=== PATIENT | female | born 1940 | race Caucasian/White ===

== ENCOUNTER → 2020-09-06 10:06 | Outpatient (CLI) | payer MEDICARE, SELFPAY ==
--- NOTE | 2020-09-06 10:07 | DI.CT.S_ITS ---
PROCEDURE: CT ABDOMEN PELVIS W CON INDICATIONS: Iron deficiency anemia, high CEA, suspicious colon cance TECHNIQUE: After the administration of oral and intravenous contrast, axial sections were acquired from the lung bases to the pubic symphysis. Coronal and sagittal reformats were performed. For radiation dose reduction, the following was used: automated exposure control, adjustment of mA and/or kV according to patient size. COMPARISON:None. FINDINGS: Image quality: Excellent. Lung bases: Unremarkable. There is concentric thickening and focal narrowing of the distal esophagus and GE junction. Heart: No significant findings. ABDOMEN: Liver: Normal in size. There is hepatic steatosis. Gallbladder: Gallbladder contains multiple gallstones. No gallbladder wall thickening or pericholecystic fluid. Biliary ducts: Unremarkable. Pancreas: Unremarkable. Spleen: Unremarkable. Adrenal Glands: Unremarkable. Kidneys and Ureters: Kidneys are normal in size and symmetric in enhancement. Left extrarenal pelvis. Stomach and Bowel: There is a mass in cecum highly suspicious for colon cancer. Moderate amount of stool in colon. No findings to suggest colonic obstruction or small bowel obstruction Peritoneum: No abnormal intraperitoneal fluid. No free air. Ventral Wall: No hernia. Abdominal Nodes: No retroperitoneal or mesenteric adenopathy by size criteria. Slightly prominent pericecal lymph nodes are noted measuring up to 0.9 cm. Vessels: Aorta and inferior vena cava are normal in size. PELVIS: Pelvic Organs: Unremarkable. Bladder: Unremarkable. Pelvic Nodes: No enlarged lymph nodes. Miscellaneous: No inguinal hernias are seen. Bones: Unremarkable. 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 IMPRESSION: 1. There is an irregular mass in cecum highly suspicious for cecal cancer. Recommend lower endoscopy and diagnosis. 2. Slightly prominent pericecal lymph nodes are seen measuring up to 0.9 cm. Cannot rule out early adrianna metastasis. 3. Mild concentric thickening and focal narrowing of the distal esophagus and GE junction. This finding could be secondary to chronic gastroesophageal reflux. Recommend clinical correlation. A double-contrast esophagram or EGD is suggested for follow-up evaluation. 4. Cholelithiasis. 5. Hepatic steatosis. Dictated by: Marti Duong M.D. on 09/06/2020 at 14:34 Approved by: Marti Duong M.D. on 09/06/2020 at 18:25
== END ==
PROVIDERS: PCP Physician Assistant Medical; Referring Provider Internal Medicine Hematology & Oncology; Visit Provider Internal Medicine Hematology & Oncology
DX: C18.9 Malignant neoplasm of colon, unspecified (principal); D50.9 Iron deficiency anemia, unspecified; R97.0 Elevated carcinoembryonic antigen [CEA]; K80.20 Calculus of gallbladder without cholecystitis without obstruction; K76.0 Fatty (change of) liver, not elsewhere classified
CPT/HCPCS: 74177; Q9967

== ENCOUNTER 2020-09-21 11:11 | Day surgery (SDC) | payer MEDICARE, SELFPAY ==
[2020-09-21] VITALS (8 sets, daily range): BP systolic 99–136; BP diastolic 45–60; PULSE 61–75; RESP 14–20; TEMP 36.1–36.8; O2SAT 93–100; BMI 30.1
--- NOTE | 2020-09-21 | DI.RAD.S_ITS ---
PROCEDURE: XR CHEST 1V INDICATIONS: staging colon cancer TECHNIQUE: One view of the chest was acquired. COMPARISON: None. FINDINGS: Surgical changes and devices: None. Lungs and pleura: Lungs are clear. No pleural effusions or pneumothorax. Mediastinum: Mediastinal contours appear normal. Heart size is normal. Bones and chest wall: No suspicious bony lesions. Overlying soft tissues appear unremarkable. IMPRESSION: No lung mass demonstrated radiographically. Dictated by: Talat Naidu M.D. on 09/21/2020 at 11:56 Approved by: Talat Naidu M.D. on 09/21/2020 at 11:56
[2020-09-21 12:39] LABS: COVID19 -Nasal RAPID Negative (Negative)
[2020-09-21] MEDS: LACTATED RINGERS 1,000 ML 200 ML IV (13:50)
--- NOTE | 2020-09-21 15:22 | PM.PREOP ---
Pre-operative Note Interval Note History & Physical reviewed/Exam performed by Physician: Yes Changes to H&P: No
[2020-09-21] MEDS: fentaNYL 250 MCG/5 ML INJ IV (15:38)
[2020-09-21] MEDS: MIDAZOLAM 5 MG/5 ML VIAL IV (15:38)
--- NOTE | 2020-09-21 16:10 | PM.OP.ENDO ---
Operative Date/Time/Diagnoses Date of procedure: 09/21/20 Time of procedure: 16:11 Pre-op diagnosis: Colon mass Post-op diagnosis: same Procedure & Clinicians Study performed: Colonoscopy Same procedure as scheduled: Yes Indications: 79-year-old woman with anemia found have a right-sided colon mass here for colonoscopy Surgeon: Brayden Langford Procedure Notes Procedure in detail: The history and physical was performed/updated and the patient is ASA class is 2. The procedure was discussed in detail with the patient. Potential risks complications including infection, bleeding, missed diagnosis, perforation, need for surgery, and were explained. Their questions were answered and informed consent was obtained. Patient was brought to the procedure room and placed standard monitoring equipment. The patient's vital signs were monitored continuously throughout the entire procedure. Prior to starting time-out was performed. The patient was placed in the left lateral recumbent position. Procedural sedation was administered. Examination began with a thorough inspection of the perianal area there was no evidence of fissures, fistulae, external hemorrhoids or cutaneous malignancy. The colonoscopy scope was then placed into the anal canal and was advanced to the cecum, which was identified by the ileocecal valve, the appendiceal orifice and the confluence of the taenia. The scope was then slowly withdrawn examining colon thoroughly in all directions, irrigating it of any residual stool. FINDINGS 1. Large several cm friable mass in the SC consistent with adenocarcinoma-3 mL of tattoo or injected across 3 quadrants 2. No synchronous lesions The patient tolerated the procedure well. They will be discharged once criteria are met. The prep was of good/excellent quality. The withdrawl time was 7minutes. The sedation time was 35 minutes. Specimen(s): none sent Complications: none Impression: Colonic mass Post-procedure Disposition: same day surgery
--- NOTE | 2020-09-21 16:45 | SUR.PHASEII ---
Patient is to return tomorrow for procedure. Dr. Langford states that patient may discharge today with IV in place. IV wrapped loosely to prevent dislodging and patient educated on IV
--- NOTE | 2020-09-21 17:03 | SUR.PHASEII ---
Patient awaiting transportation to arrive from [facility]. Denies having any questions or concerns. OR charge nurse attempting to coordinate with acute care to admit patient to the floor tomorrow for blood transfusion prior to surgery.
--- NOTE | 2020-09-21 17:30 | SUR.PHASEII ---
Continues to wait for ride, dozing intermittently, arouses easily to voice. Hand off report to Cheli Can RN at 2526
== END 2020-09-21 18:34 | disposition home or self-care (01) ==
PROVIDERS: PCP Family Medicine; Referring Provider Surgery; Visit Provider Surgery
PROC: 0DJD8ZZ Inspection of Lower Intestinal Tract, Via Natural or Artificial Opening Endoscopic (ICD-10-PCS; CPT 45378; principal; 2020-09-21 14:45)
CPT/HCPCS: 36415; 71045; 86850; 86900; 86901; 87635; J2250; J3010

== ENCOUNTER 2020-09-22 12:31 | Inpatient (IN) | payer MEDICARE, SELFPAY ==
[2020-09-20 11:52] VITALS: BMI 30.6
[2020-09-22] VITALS (22 sets, daily range): BP systolic 92–132; BP diastolic 37–91; PULSE 61–75; RESP 13–20; TEMP 35.8–36.7; O2SAT 90–100
--- NOTE | 2020-09-22 | PATH_ITS ---
[facility] Accession Number: [id number] . 01 Material submitted: . colon - RIGHT COLON AND APPENDIX . 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 Please see CAP Summary Data below. . CAP SUMMARY DATA Procedure: Right hemicolectomy. Tumor site: Cecum. Histologic type: Adenocarcinoma with mucinous and signet ring cell features. Histologic grade: G3, poorly differentiated. Tumor size: Greatest dimension 7.0 cm. Tumor extent: Invades visceral peritoneum. Macroscopic tumor perforation: Not identified. Lymphovascular invasion: Present, confirmed by immunohistochemistry. Perineural invasion: Not identified. Treatment effect: No known presurgical therapy. . Margins: All margins negative for invasive carcinoma. Closest margin: Mesenteric, greater than 2 cm. Regional lymph nodes: All regional lymph nodes negative for tumor. Number of lymph nodes examined: 11. Tumor deposits: Not identified. . Pathologic stage classification (AJCC 8th Edition): pT category: pT4a. pN category: pN0. pM category: Not applicable. . Additional findings: Tubular adenomas and sessile serrated adenomas. Appendix with no diagnostic abnormality. . Special studies: Loss of nuclear expression of MLH1 and PMS2 by immunohistochemistry. Please see comment. [facility] 09/27/2020 1616 Local . 02 Comment: There is loss of nuclear expression of MLH1 and PMS2. Testing for methylation of MLH1 promotor and/or mutation of BRAF is indicated. These tests will be performed and the results reported as an addendum. . . As part of routine supplier quality specialist, Dr. Toro reviewed selected slides and agrees with diagnosis of adenocarcinoma. . 02 Electronically signed: . Nyla Cruz MD, Pathologist NPI- [id number] . 01 Gross description: . The specimen is received in formalin, labeled right colon and appendix and consists of a 4.0 cm in length by 2.0 cm in diameter portion of terminal ileum with attached cecum and ascending colon measuring 23 cm in length by 2.8 cm in diameter. The proximal and distal margins are stapled. The serosa is hall-pink and smooth with focal fibrinous adhesions. The attached appendix measures 3.2 cm in length by 0.6 cm in diameter and displays a hall-pink smooth serosa. The specimen is opened to reveal a 7.0 x 5.2 x 1.5 cm, fungating, hall-pink, focally hemorrhagic and focally necrotic mass within the cecum and ascending colon, coming to within 4.8 cm from the proximal margin and greater than 10 cm from the distal margin. Sectioning reveals extension through the muscularis to the serosa with a maximal thickness of 2.8 cm and the extension measuring 0.5 cm. The mass is greater than 2 cm from the mesenteric margin. The remaining mucosa is hall-pink with normal mucosal folds and three hall-pink sessile polyps distal to the mass (2.2 cm), ranging from 0.2-0.4 cm with no submucosal involvement. There is a 4.5 x 3.0 cm black area of submucosal tattooing located 5.5 cm from the distal margin. The wall thickness ranges from 0.1-0.3 cm and the internal luminal circumference ranging from 2.0-7.0 cm. Sectioning through the attached adipose tissue reveals multiple hall-pink lymph nodes ranging from 0.2-1.3 cm. Also received within the specimen container is a 3.0 cm in length by 1.6 cm in diameter additional portion of small intestine with three stapled margins. Coffee Farmer sections are submitted. . A1: Proximal margin, education courses sales representative perpendicular sections (blue). A2: Distal margin, education courses sales representative perpendicular sections (black). A3-A7: Coffee Farmer mass. A8: Closest mesenteric margin, education courses sales representative perpendicular section (blue). A9: Three sessile polyps. A10: Coffee Farmer submucosal tattooing. A11: Coffee Farmer appendix. A12: Coffee Farmer additional portion of small intestinal, to include stapled margins (blue and black). A13-A14: Intact candidate lymph nodes. A15: One trisected lymph node. A16: One bisected lymph node. (EA:[id number]) /MRV 09/23/2020 1156 Local . 02 Microscopic: . Immunohistochemical stains were performed to characterize cells of interest. All control stains showed appropriate reactivity. . RESULTS: Block A5: CK7: Negative. CK20: Variably positive. SATB2: Positive. PAX8: Negative. D2-40: Highlights lymphatics containing malignant cells. MLH1: Loss of nuclear expression. MSH2: Intact nuclear expression. MSH6: Intact nuclear expression. PMS2: Loss of nuclear expression. Background nonneoplastic tissue/internal control with intact nuclear expression. . INTERPRETATION: The immunophenotype is compatible with a primary colonic adenocarcinoma. D2-40 stain confirms the presence of lymphovascular invasion. There is loss of nuclear expression of MLH1 and PMS2. . . Cytokeratin KRISTINA stains were performed on blocks containing lymph nodes (A13-A16) to evaluate for metastasis and are all negative. . . . * This test was developed and its performance characteristics determined by [employer]. It has not been cleared or approved by the U.S. Food and Drug Administration. The FDA has determined that such clearance or approval is not necessary. This test is used for clinical purposes. It should not be regarded as investigational or for research. . 02 Pathologist provided ICD-10: C18.9 . 02 CPT . 912556, E27416, C95553 Performed at: 01 [facility] Cytology [address] [id number] MD Juan Antonio Rader MD Phone: [phone] Performed at: 02 [facility] [id number] [place] [id number] MD Nyla Cruz MD Phone: [phone]
--- NOTE | 2020-09-22 13:05 | SUR.OPER ---
Supine on padded OR bed, head on pillow, arms secured on padded arm boards at <90 degrees abduction, legs uncrossed, safety belt at thigh, tape over blanket over lower legs.
--- NOTE | 2020-09-22 13:45 | PM.PREOP ---
Pre-operative Note Interval Note History & Physical reviewed/Exam performed by Physician: Yes Changes to H&P: No H&P completed within 30 days and has changed as indicated here:: colonoscopy demonstrates large friable mass consistent with adenocarcinoma of the cecum no additional lesions. Staging imaging CT A/P and CXR negative for metastatic disease. Will proceed with laparoscopic assisted right hemicolectomy.
[2020-09-22] MEDS: LACTATED RINGERS 1,000 ML 100 ML IV (14:01)
--- NOTE | 2020-09-22 14:07 | SUR.PREOP ---
Patient PRBC started infusing into IV at 1348. Blood teaching done. Recheck at 1403. Pt asymptomatic. Pt being transferred to OR via stretcher at this time by Chuy YOUNG. IVF in 2nd IV to right arm. Report to Dr Hargrove and RN.
[2020-09-22] MEDS: PIPERACILLIN/TAZO 4.5 GM in SODIUM CHLORIDE 0.9% 100 ML 200 ML IV (14:25)
--- NOTE | 2020-09-22 14:52 | SUR.OPER ---
Lithotomy on padded OR bed. [place] Pad Positioner under torso. Head on pillow, arms padded and tucked at sides. Legs secured in padded yellow fins stirrups.
[2020-09-22] MEDS: BUPIVACAINE 0.25% (PF) VIAL 30 ML INJ (15:04)
--- NOTE | 2020-09-22 15:32 | SUR.OPER ---
1 ST UNIT BLOOD INFUSED [id number] 2ND UNIT UP [id number]
--- NOTE | 2020-09-22 16:07 | SUR.OPER ---
LEFT ARM EXTENDED ON ARMBOARD AND SECURED WHEN 2 ND BLOOD ADMINISTERED
--- NOTE | 2020-09-22 17:49 | SUR.OPER ---
First unit of PRBC, unit number [id number] completed infusing at 1545, corrected from 1721. The Second unit of PRBC was completed at 1721 as documented in TAR.
--- NOTE | 2020-09-22 18:23 | SUR.PHASEI ---
Dr. Guidry checked on patient, told him that she is beginning to arouse, BP increasing, sleeping comfortably.. Resp even and regular, skin warm and dry. 1833 UA collected, taken to the lab
--- NOTE | 2020-09-22 18:54 | SUR.PHASEI ---
Son present, patient awake, very drowsy, told her son that she loves him. Denies pain/nausea, will transfer on room air
[2020-09-22 19:09] LABS: Bacteria Urine None Seen
[2020-09-22 19:19] LABS: Appearance Urine UA CLEAR; Bilirubin Urine UA NEGATIVE (NEGATIVE); Color Urine UA YELLOW; Glucose Urine UA NEGATIVE (Negative); Ketones Urine UA TRACE (NEGATIVE); Leukocyte Esterase Urine UA NEGATIVE (NEGATIVE); Nitrite Urine UA NEGATIVE (Negative); Occult Blood Urine UA TRACE-LYSED (Negative); Protein Urine UA TRACE (Negative); Urobilinogen Urine UA 0.2 E.U./dL (0.2)
--- NOTE | 2020-09-22 19:20 | SUR.PHASEI ---
Addendum entered by Shital Carbajal R.N. 09/22/20 19:31: 1857 time we left PACU Original Note: 1900 second liter of LR hung in the OR, 1900 ml infused; Taken to room 225, bed down and locked, call light within reach. Waiting for float nurse to give on-site report. SCDs on, ice chips given, O2 at 2LNP. Clothing bag and colorful bag taken to the room (cell phone and tablet). Family to bedside talking with patient. Patient is very tired, talking with the family. Report was given at 1912 - patient stated that she was having some abdominal pain - nurse will treat. VSS; abdominal dressing remains CDI, minimal drainage in drain. No further questions from the patient, staff, or family.
[2020-09-22] MEDS: HYDROMORPHONE 0.5 MG INJ IV (19:28)
[2020-09-22 19:29] LABS: pH Urine UA 5.5 (4.5-8.0)
[2020-09-22 19:40] LABS: Culture Indicated Urine Cult Not Indicated; Hyaline Casts Urine 1-5/LPF; RBC Urine 0-1/HPF (0-5/HPF); Squamous Epithelial Cell Urine 0-1 /HPF (0-5/HPF); Uric Acid Crystals Urine Moderate; WBC Urine 0-1/HPF (0-5/HPF)
--- NOTE | 2020-09-22 20:32 | P.OP_ITS ---
Operative Date/Time/Diagnoses Date of procedure: 09/22/20 Time of procedure: 20:32 Pre-op diagnosis: Colon mass Post-op diagnosis: same Procedure & Clinicians Procedure: Laparoscopic converted to open right hemicolectomy Same procedure as scheduled: Yes Indications: 79-year-old woman seen with anemia underwent a CT which demonstrated a right colon mass. Colonoscopy yesterday demonstrates a large friable mass in the right colon no synchronous lesions. Staging workup no evidence of metastatic disease Surgeon: Brayden Langford Chip Unloader: Forrest Guidry Anesthesia Type: General Operative Notes Findings: Large near obstructing mass of the right colon. No evidence of metastatic disease. Specimen(s): other (Right colon) Estimated Blood Loss (mL): 150 Procedure in detail: Patient was brought to the operating room placed supine on the table. Bilateral lower extremity compression devices were applied. General anesthesia was induced she was intubated with an endotracheal tube. Jackson catheter was sterilely placed. She was then positioned into lithotomy and appropriately padded. Time-out was performed. She received Zosyn prior to skin incision. A intra umbilical incision was made the fascia was grasped elevated sharply incised the abdomen was entered atraumatically. 12 mm balloon trocar w as then placed into the abdomen. Inspection of the abdomen demonstrated extensive adhesions within the right side of the abdomen and the lower midline secondary to her previous hysterectomy. These adhesions were extremely dense and the procedure was converted to open. A lower midline incision was made subcutaneous tissue divided fascia grasped elevated sharply incised abdomen was entered atraumatically. A lysis of adhesions was performed using sharp dissection. There was no evidence of carcinomatosis the liver surface was clean. The lesion was large and firm located in the cecum and there was tattoo indicating the distal extent of the area of concern. Beginning with the transverse colon the gastrocolic ligament was divided the hepatic flexure was mobilized. The dissection was continued in a lateral to medial fashion progressing down the white line of T[place]t to the level of the cecum. At this point the transverse colon was divided just beyond the hepatic flexure a window within the mesentery was created the colon was divided with the stapler Endo-TASHA 75 mm blue load. The mesentery to the right colon was then divided using the LigaSure device. The duodenum was identified and swept posteriorly out of harm's way. The mesentery was oversewn in several places using silk ties. The ileocolic pedicle was doubly ligated on the stay side. The terminal ileum was divided using the stapler. There was bleeding from the mesenteric side of the cut small bowel which was suture ligated. Because of this I decided to resect an additional 2 cm of small bowel to get back to healthy well perfused bowel and this was done with another load of the stapler. A [id number] anastomosis was formed between the transverse colon and the distal ileum. A crotch stitch was of place with silk and then the colotomy and enterotomy were made the anti mesenteric of surface of the bowels were fashioned in a [id number]-[id number] anastomosis with a additional load of the stapler. The common channel was inspected it was hemostatic and widely patent. The common open was then closed in a running fashion using 3-0 PDS suture. The closure was then imbricated using interrupted silk suture in Lembert fashion. The anastamosis was widely patent, well perfused and without tension. We then tested the anastomosis by submerging it within saline and insufflation was instilled within the rectum there was no evidence of leak. The abdomen was then irrigated with several L of sterile saline change of glove and gown was performed. The abdomen was then closed the fascia closed in running fashion using 1. PDS suture. Given the thick abdominal wall I placed a 10 [place] MOY flat drain in the subcutaneous space above the level of the fascia the subcutaneous tissue was then reapproximated using Vicryl suture skin closed with adriana. Patient tolerated the procedure well she was transferred to the recovery room in stable condition. Complications: none Post-operative Condition: stable Disposition: Acute Care
[2020-09-22] MEDS: METOPROLOL IR 50 MG TABLET 100 MG PO (20:37)
[2020-09-22] MEDS: OXYCODONE IR 5 MG TABLET PO (20:41)
[2020-09-23] VITALS (11 sets, daily range): BP systolic 105–155; BP diastolic 52–75; PULSE 56–81; RESP 16–20; TEMP 35.8–37; O2SAT 95–100
[2020-09-23] MEDS: OXYCODONE IR 5 MG TABLET PO ×4 (01:19→12:49)
[2020-09-23 06:17] LABS: Add Manual Diff / Slide Review NO; Basophils Absolute Auto 100 /uL (0-100); Basophils Percent Auto 0.4 % (0-2); Eosinophils Absolute Auto 0 /uL (0-450); Hematocrit 31.3 % (36-46); Hemoglobin 9.9 g/dL (12.0-16.0); Lymphocytes Absolute Auto 900 /uL (1100-4500); Lymphocytes Percent Auto 6.5 % (25-40); Mean Corpuscular HGB Conc 31.6 % (30-36); Mean Corpuscular Hemoglobin 23.4 PG (26-34); Mean Corpuscular Volume 73.9 fL (80-100); Monocytes Absolute Auto 700 /uL (0-900); Monocytes Percent Auto 4.8 % (3-14); Neutrophils Absolute Auto 11900 /uL (1500-7000); Neutrophils Percent Auto 88.3 % (50-75); Platelet Count 487 X10^3/uL (150-400); Red Blood Cell Count 4.23 X10^6/uL (4.0-5.2); Red Cell Distribution Width 27.6 % (11.6-14.8); White Blood Cell Count 13.5 X10^3/uL (4.5-11.0)
[2020-09-23 06:23] LABS: BUN Creatinine Ratio 11.3 (6-22); Blood Urea Nitrogen 9 mg/dL (7-17); Calcium 8.4 mg/dL (8.4-10.2); Carbon Dioxide 24 mmol/L (22-32); Chloride 106 mmol/L (98-107); Estimated Glomerular Filt Rate > 60.0 mL/min (>60); Glucose 137 mg/dL (80-110); HEMOLYSIS < 15 (0-50); Potassium 4.4 mmol/L (3.4-5.1); Sodium 137 mmol/L (137-145)
[2020-09-23 06:46] LABS: Anisocytosis 2+
[2020-09-23] MEDS: LACTATED RINGERS 1,000 ML 100 ML IV (08:28)
[2020-09-23] MEDS: CITALOPRAM 10 MG TABLET 20 MG PO (08:29)
[2020-09-23] MEDS: ENOXAPARIN 40 MG/0.4 ML SYRINGE SUBCUT (08:29)
--- NOTE | 2020-09-23 09:03 | P.PN_ITS ---
Subjective Subjective Date Patient Seen: 09/23/20 Time Patient Seen: 09:03 Interval history: tolerating clears. No flatus or BM. Pain controlled. Exam Vital Signs (past 8 hours): - 09/23/20 04:12 09/23/20 05:00 09/23/20 07:45 Temperature 96.7 F L 97 F L Pulse Rate 57 L 56 L Respiratory Rate 16 18 Blood Pressure 130/57 L 111/52 L Pulse Oximetry 99 98 99 Oxygen Delivery Method Nasal Cannula Oxygen Flow Rate 2 Narrative Exam Narrative: gen-adult female alert and oriented no distress chest-non labored resp abdomen-appropriately tender to palpation. drain SS ext-WWP Objective Labs Result Diagrams: 09/23/20 05:33 09/23/20 05:33 Labs: Laboratory Results - last 24 hr 09/21/20 09/22/20 09/23/20 12:02 18:36 05:33 WBC 13.5 H RBC 4.23 Hgb 9.9 L Hct 31.3 L MCV 73.9 L MCH 23.4 L MCHC 31.6 RDW 27.6 H Plt Count 487 H Neut % (Auto) 88.3 H Lymph % (Auto) 6.5 L [place] % (Auto) 4.8 Eos % (Auto) 0.0 L Baso % (Auto) 0.4 Neut # (Auto) 66391 H Lymph # (Auto) 900 L [place] # (Auto) 700 Eos # (Auto) 0 Baso # (Auto) 100 RBC Morphology See below Anisocytosis 2+ H Sodium Potassium Chloride Carbon Dioxide BUN Creatinine Estimated GFR BUN/Creatinine Ratio Glucose Calcium Urine Color Yellow Urine Appearance Clear Urine pH 5.5 Ur Specific [place] 1.020 Urine Protein Trace H Urine Glucose (UA) Negative Urine Ketones Trace H Urine Occult Blood Trace-lysed Urine Nitrate Negative Urine Bilirubin Negative Urine Urobilinogen 0.2 Ur Leukocyte Esterase Negative Urine RBC 0-1/hpf Urine WBC 0-1/hpf Ur Squamous Epith Cells 0-1 /hpf Uric Acid Crystals Moderate H Urine Bacteria None seen Hyaline Casts 1-5/lpf Ur Culture Indicated? Cult not indicated Blood Type A Positive Antibody Screen Negative Crossmatch See Detail 09/23/20 05:33 WBC RBC Hgb Hct MCV MCH MCHC RDW Plt Count Neut % (Auto) Lymph % (Auto) [place] % (Auto) Eos % (Auto) Baso % (Auto) Neut # (Auto) Lymph # (Auto) [place] # (Auto) Eos # (Auto) Baso # (Auto) RBC Morphology Anisocytosis Sodium 137 Potassium 4.4 Chloride 106 Carbon Dioxide 24 BUN 9 Creatinine 0.80 Estimated GFR > 60.0 BUN/Creatinine Ratio 11.3 Glucose 137 H Calcium 8.4 Urine Color Urine Appearance Urine pH Ur Specific [place] Urine Protein Urine Glucose (UA) Urine Ketones Urine Occult Blood Urine Nitrate Urine Bilirubin Urine Urobilinogen Ur Leukocyte Esterase Urine RBC Urine WBC Ur Squamous Epith Cells Uric Acid Crystals Urine Bacteria Hyaline Casts Ur Culture Indicated? Blood Type Antibody Screen Crossmatch FOR[facility]LY [facility], 1928–1983 Medical History (Updated 09/20/20 @ 12:12 by Apple Lee, RN) Alcoholism Benign paroxysmal vertigo Easy bruisability Hyperlipidemia Hypertension Major depressive disorder in remission Meniere disease Surgical History (Updated 09/20/20 @ 12:09 by Apple Lee, HECTOR) History of ankle surgery History of hysterectomy Hx of bilateral cataract extraction Family History Father Heart attack Social History household members: none Smoking Status: Former smoker alcohol intake: former substance use type: does not use Assessment & Plan Post-op Postoperative Procedures: Procedures Operation Date: 09/22/20 13:15 Actual Procedure Side Surgeon p Colon Resection Low Anterior w/ Appendectomy Brayden Langford MD Postoperative status narrative: 79F POD 1 lap to open right hemicolectomy for pr esumed colon cancer Doing well routine postoperative course -Diet-Clears until return of bowel function -Remove lamb cath -DC IVF -Out of bed to chair ambulate, PT -SCDs and pLovenox
--- NOTE | 2020-09-23 12:05 | PC.NURSE ---
PT reports mod-severe pain with movement s/p 5 mg oxycodone; lamb removed at 1100 and pt voided to bathroom; BTs hypoactive; MOY drain with scant sero-sanguineous, Bulky drsg c/d/i; ls clear; SCDs active; patient in bed and tolerating clear liquids
--- NOTE | 2020-09-23 13:33 | CM.DANOTE ---
Discharge Planning/Care Management DCP: assessment: case received, EMR reviewed and met now with pt and her son Abdoul. Introduced self and role. Pt is a 79 year old female who admitted yesterday for a scheduled Lap to open R hemicolectomy under care of Dr. Langford. Payer: [facility] PCP: Francis Garnica Jackson catheter is now out. Pt has been up to the chair and is starting clears. Pt confirms that her plan is to d/c to home when stable for same. Abdoul and his also live on [facility] and 2 grandsons also reside there. All have been talking about how best to support pt and are taking turns with different parts of her anticipated care needs. P: at this time: home with family support when stable for same. Anticipate PT will be involved when pt ready for this. DCP team will be following. CM Discharge Assessment Start: 09/23/20 13:25 Freq: Status: Active Protocol: Document 09/23/20 13:26 ITV (Rec: 09/23/20 13:33 ITV [id number]) Discharge Planning Assessment Advance Directives? Yes Advance Directives on File No History Provided By Patient,Family Member Has Patient been admitted in last 30 No days? Prior Living Arrangements House Household Members none Independent with ADL's Yes Is patient alert and oriented? Yes Document 09/23/20 13:32 ITV (Rec: 09/23/20 13:33 ITV [id number]) Discharge Planning Assessment Advance Directives? Yes Advance Directives on File No History Provided By Patient Prior Living Arrangements House Household Members none Independent with ADL's Yes Is patient alert and oriented? Yes Discharge Plan Home Review Status In Process Pre-Anesthesia Assessment Start: 09/20/20 11:52 Freq: Status: Active Protocol: Document 09/20/20 11:52 CAB (Rec: 09/20/20 12:32 CAB [id number]) Pre-Anesthesia Assessment Preferred Name Pat Patient Information Reviewed Via Phone Assessment Assessment Completed With Patient Comment ABDELRAHMAN SIMON on admit Primary Care Provider Francis Garnica Seen Specialist in Last 12 Months Yes Specialist Seen General surgeon,Oncologist, Opthamologist/Planer Setter Primary Language Korean Administration Clerk Required No Height 160.02 cm Weight 78.471 kg Body Mass Index (BMI) 30.6 Hearing Ability Normal Visual Assist Magnifying Glass Dentition Type Full- Upper Barriers to Learning None Hx Anesthesia Reactions No Hx Family Anesthesia Reaction No Hx Malignant Hyperthermia No Hx Blood Transfusions Yes: Anemia 3-4 weeks ago Hx Blood Transfusion Reaction No Anesthesia Review Requested No alcohol intake former Alcohol Intake Frequency Other: Hx alcoholism, sober x 34 years Smoking Status Former smoker Tobacco type cigarettes Smoking packs per day 1 how long ago did patient quit smoking Quit age [age] Substance Use Type does not use Pain Present Pain Reported Musculoskeletal Symptoms Back Pain History of Falling (Recent or History of Yes ) Patient is completely paralyzed or No completely immobile Mental Status Oriented to own ability Is patient on oxygen? No Does patient have BARTON/SOB Yes: r/t Anemia Hx Sleep Apnea No Currently Taking a Beta Juwan Yes: Metoprolol Can You Climb a Flight of Stairs Without No SOB Hx Chest Pain No Hx SOB Yes: r/t Anemia Hx Syncope or Dizziness Yes: r/t vertigo Anti-Coagulant Therapy No Has a Security System Technician No Cardiac Testing No Hx Pacemaker/ICD No Pacemaker Rep Required? No Diet Type At Home Regular dysphagia No Genitourinary Symptoms Dribbling Urinary Catheter Present No Hx Urinary Self Catheterization No Diabetes No Patient No Lactating No Hx Drug Resistant Organism No Presence of External or Internal Medical Yes: Salvatore eye lens Devices Have you had any close contact with No someone diagnosed with COVID-19? Marital Status Single Lives With none Prior Living Arrangements House Number of Floors (Floors) Two Floors Support System Child/Children Does the Patient Have Assistance After Yes Surgery Patient Discharge Plan Description Return Home Comment Pt advised 2-3 day length of stay per surgeon Additional comment Lives on [facility] Feels Safe in Current Environment Yes Been Physically Hurt or Threatened By a No Person in Current Environment Do you have thoughts of harming yourself None or others? Are you currently considering suicide? No Do you have a plan to hurt yourself or No Plan others? Do You Have Any Spiritual Beliefs That No May Affect Your HC Choices? Do You Have Any Cultural Practices That No May Affect Your HC Choices? Comment Sikh Who Can We Speak to About Patient's Care Family, friends Identifying Code for Release of Patient Declines to issue Information Health Care Proxy/Next of Kin Abdoul (son) Health Care Proxy Emergency Contact Name Abdoul (son) Emergency Contact Advance Directives? No Power of Building Operator No PAC Instructions Durable medical equipment, Medications to take/avoid, Nasal antibiotic,No ETOH/ petroleum product on skin DOS, NPO,Post-op transportation, Sturdy shoes/comfortable clothes,Do not bring valuables and remove jewelry
--- NOTE | 2020-09-23 14:08 | PT.IIE ---
Current Diagnoses Other specified diseases of intestine (09/22/20) Surgery Performed Operation Date: 09/22/20 13:15 Actual Procedures p Colon Resection Low Anterior w/ Appendectomy - Brayden Langford MD Medical History (Last Updated 09/20/20 @ 12:12 by Apple Lee RN) Alcoholism Benign paroxysmal vertigo Easy bruisability Hyperlipidemia Hypertension Major depressive disorder in remission Meniere disease Physical Therapy Inpatient Evaluation/Re-Eval M1 PT/OT-IP Prior Functional Status Start: 09/23/20 18:08 Freq: NEEDED Status: Active Protocol: Document 09/23/20 14:08 AB (Rec: 09/23/20 18:20 AB [id number]) Medical Review Prior Functional Status Medical History Reviewed Yes Communication able to make needs known Mobility and Gait pt stated that she is modified independent with all mobiltiies and ambulation without AD indoors and most of the time outdoors as well but occasionally uses a SPC Social History Household Members none Living Arrangements House Number of Floors (Floors) Two Floors Number of Stairs To Enter/Railing? pt plans to go to her son's house upon d/c and stated that her son and daughter in law can assist her. home info is regarding son's house pt will stay on main level of the house 3 steps to enter with B rails Home Environment Standard Height Toilet,Walk in Shower,Built-In Shower Seat Home Equipment Front Wheel Walker,Straight Cane,Grab Bars In Shower M2 PT-IP Current Condition Start: 09/23/20 18:08 Freq: NEEDED Status: Active Protocol: Document 09/23/20 14:08 AB (Rec: 09/23/20 18:20 AB [id number]) Physical Therapy Current Condition Current Condition Evaluation Date 09/23/20 Treatment Diagnosis s/p R hemicolectomy; difficulty in walking Onset Date 09/22/20 Precautions Abdominal Surgery Precautions Log Roll,Lifting Restrictions, Gait Belt above Incisional Area M3 PT-IP Subjective Start: 09/23/20 18:08 Freq: NEEDED Status: Active Protocol: Document 09/23/20 14:08 AB (Rec: 09/23/20 18:20 AB [id number]) Subjective Physical Therapy Visit Type Type Initial Evaluation Visit Start Time 14:08 Visit Stop Time 14:38 Total Visit Minutes 30 Number of LARD RENDERER Visits 0 Physical Therapy Visit Comments Patient Comments agreed to do PT Therapy Pain Assessment Pain When Pain Assessed At Rest Pain Present Pain Present Pain Reported Location Abdomen Intensity 7 Scale Used Numeric (0 - 10) Pain Management Techniques Distraction,Modification of Treatment,Re-positioning, Timing of Activity with Medications M4 PT-IP Mobility and Gait Start: 09/23/20 18:08 Freq: NEEDED Status: Active Protocol: Document 09/23/20 14:08 AB (Rec: 09/23/20 18:20 AB [id number]) PT-Bed Mobility Assessment Rolling Type of Rolling Log Rolling Level of Assist Minimal Assistance Supine to Sit Supine to Sit Minimal Assistance Sit to Supine Sit to Supine Minimal Assistance PT-Transfer Assessment Sit to and From Stand Sit to and from Stand Contact Guard Assistance,1 Person Assistance,Use of Upper Extremities Equipment Transfer Assistive Device Gait Belt,Front Wheeled Walker Transfers Transfer Destination Bed,Chair Transfer Technique ambulated using FWW Transfer Ability Level of Assist Contact Guard Assistance,1 Person Assistance,Use of Upper Extremities Comments Mobility Comments pt sitting on chair and agreed to do PT. educated pt regarding abdominal precautions and log roll. completed sit to stand CGA and ambulated ~ 12 using FWW. completed log roll sit <> supine min A and max cues. completed sit to stand CGA and ambulated back to bed usign FWW CGA. pt refused further ambulation and c/o abdominal pain. positioned pt on chair. call light and table placed within reach. pt Gait Assessment Gait Gait Assistance Required: Contact Guard Assist Distance (Feet) 12 Able to Maintain Weight Bearing Status Yes During Gait Assistive Devices Assistive Device Gait Belt,Front Wheeled Walker Orthotic/Prosthetic Devices or Brace: No Gait Deviations General Gait Pattern Decreased Stride Length, Decreased Feet Clearance Factors Limiting Gait Function Factors Limiting Gait Function Decreased Activity Tolerance, Decreased Strength,Limited Range of Motion,Pain,Poor Balance PT-Balance Assessment Sitting Balance and Reactions Static Sitting Balance Ability Good Dynamic Sitting Balance Ability Good Standing Balance and Reactions Static Standing Balance Ability Fair Dynamic Standing Balance Ability Fair Device Used FWW M5 PT-IP Objective Assessments Start: 09/23/20 18:08 Freq: NEEDED Status: Active Protocol: Document 09/23/20 14:08 AB (Rec: 09/23/20 18:20 AB [id number]) Orientation Orientation/Cognition Level of Alertness Alert Orientation Name,Place,Situation Language Function Ability Hard of Hearing Safety Awareness Decreased Safety Awareness Memory Description No Deficits Noted Gross Range of Motion Lower Extremity ROM Assessment Within Functional Limits Strength Lower Extremity Strength Hip 4-/5 Knee 4-/5 Coordination Assessment Gross Coordination Gross Coordination WNL Sensation Assessment Sensation Gross Sensation WNL Muscle Tone Muscle Tone WNL Yes M6 PT-IP Treatment Start: 09/23/20 18:08 Freq: NEEDED Status: Active Protocol: Document 09/23/20 14:08 AB (Rec: 09/23/20 18:20 AB [id number]) Physical Therapy Treatment Education Education Provided Precautions,Safety M7 PT-IP Assessment and Plan Start: 09/23/20 18:08 Freq: NEEDED Status: Active Protocol: Document 09/23/20 14:08 AB (Rec: 09/23/20 18:20 AB [email or web address]) PT Summary Assessment and Plan Potential Rehabilitation Potential Good Status of Condition at Evaluation Evolving Summary Impairments Pain,ROM,Strength,Balance,Bed Mobility,Transfers,Gait, Activity Tolerance Assessment Summary pt requiring CGA with mobility using FWW but has decrease activity tolerance with c/o increase pain. pt plans to go home to her son's house. will conduct caregiver training when appropriate as well as stair climbing training. will continue to assess progress. Goals Bed Mobility Goal Independent Transfer Goal Independent,Front Wheeled Walker Gait Goal Independent,Front Wheel Walker Gait Distance 200 Other Goals improve ambulation withotu AD 150 ft SBA up/down 3 steps B rails SBA Days to Meet Goals 10 Frequency of Treatment Frequency Of Treatment Once a Day Treatment Plan Physical Therapy Treatment Plan Bed Mobility Training,Transfer Training,Gait Training, Therapeutic Exercise,Balance Retraining,Post Op Education, Discharge Planning,Hot or Cold Pack,Neuromuscular Re-ed, Coordination Retraining,Manual Therapy Precautions Abdominal Surgery Precautions Log Roll,Lifting Restrictions, Gait Belt above Incisional Area Recommendations To Nursing Amount of Assist Needed 1 Person Assist Discharge Recommendations PT Discharge Recommendations Home with Assistance Transportation Needs at Discharge Private Vehicle
[2020-09-23] MEDS: OXYCODONE IR 5 MG TABLET 10 MG PO ×2 (15:54→20:36)
--- NOTE | 2020-09-23 18:17 | PC.NURSE ---
Nurse note. assumed pt responsibility at 1630. pt AO and receptive to care. Midline incision covered with ABD pad, CDI with MOY drain compressed with mild serosang drainage. pt reporting 2/10 pain post oxycodone 10mg at 1554. Tolerating clear liquid diet. Up to BR SBA.
[2020-09-23] MEDS: METOPROLOL IR 50 MG TABLET 100 MG PO (20:36)
[2020-09-24] VITALS (14 sets, daily range): BP systolic 109–146; BP diastolic 52–65; PULSE 60–71; RESP 15–18; TEMP 35.7–36.6; O2SAT 92–97
[2020-09-24] MEDS: OXYCODONE IR 5 MG TABLET 10 MG PO ×3 (03:15→20:19)
[2020-09-24 05:43] LABS: Blood Urea Nitrogen 10 mg/dL (7-17); Calcium 8.9 mg/dL (8.4-10.2); Carbon Dioxide 30 mmol/L (22-32); Chloride 105 mmol/L (98-107); Estimated Glomerular Filt Rate 59.8 mL/min (>60); Glucose 103 mg/dL (80-110); HEMOLYSIS < 15 (0-50); Sodium 137 mmol/L (137-145)
[2020-09-24 05:48] LABS: Potassium 5.2 mmol/L (3.4-5.1)
[2020-09-24 05:50] LABS: Basophils Absolute Auto 100 /uL (0-100); Basophils Percent Auto 0.7 % (0-2); Eosinophils Absolute Auto 400 /uL (0-450); Eosinophils Percent Auto 2.8 % (2-4); Hematocrit 29.3 % (36-46); Hemoglobin 9.2 g/dL (12.0-16.0); Lymphocytes Absolute Auto 2000 /uL (1100-4500); Lymphocytes Percent Auto 15.6 % (25-40); Mean Corpuscular HGB Conc 31.2 % (30-36); Mean Corpuscular Hemoglobin 23.4 PG (26-34); Mean Corpuscular Volume 74.9 fL (80-100); Monocytes Absolute Auto 900 /uL (0-900); Neutrophils Absolute Auto 9600 /uL (1500-7000); Neutrophils Percent Auto 73.9 % (50-75); Platelet Count 472 X10^3/uL (150-400); Red Blood Cell Count 3.92 X10^6/uL (4.0-5.2); Red Cell Distribution Width 27.7 % (11.6-14.8)
[2020-09-24 05:51] LABS: Add Manual Diff / Slide Review SLIDE REVIEW
[2020-09-24 07:10] LABS: Anisocytosis 2+; Ovalocytes 1+; Poikilocytosis 1+
[2020-09-24] MEDS: CITALOPRAM 10 MG TABLET 20 MG PO (09:17)
[2020-09-24] MEDS: ENOXAPARIN 40 MG/0.4 ML SYRINGE SUBCUT (09:17)
[2020-09-24] MEDS: METOPROLOL IR 50 MG TABLET 100 MG PO ×2 (09:17→20:19)
--- NOTE | 2020-09-24 13:23 | PM.PNPO.1 ---
Subjective Subjective Date Patient Seen: 09/24/20 Time Patient Seen: 13:24 Exam Vital Signs (past 8 hours): - 09/24/20 07:46 09/24/20 11:45 Temperature 98 F 97.9 F Pulse Rate 65 60 Respiratory Rate 15 16 Blood Pressure 120/53 L 109/59 L Pulse Oximetry 94 93 Oxygen Delivery Method Room Air Oxygen Flow Rate 0 Narrative Exam Narrative: Looks great. Tolerating clear liquids. No stool or flatus Const General: cooperative and comfortable HENCT Head: normocephalic and atraumatic Resp Effort & Inspection: normal respiratory effort and able to speak in complete sentences Cardio Rate: regular rate Rhythm: regular rhythm GI Other: abdomen is soft, dressing dry and intact. Drain is serosang. Objective Labs Result Diagrams: 09/24/20 05:00 09/24/20 05:00 Labs: Laboratory Results - last 24 hr 09/24/20 09/24/20 05:00 05:00 WBC 13.0 H RBC 3.92 L Hgb 9.2 L Hct 29.3 L MCV 74.9 L MCH 23.4 L MCHC 31.2 RDW 27.7 H Plt Count 472 H Neut % (Auto) 73.9 Lymph % (Auto) 15.6 L [place] % (Auto) 7.0 Eos % (Auto) 2.8 Baso % (Auto) 0.7 Neut # (Auto) 9600 H Lymph # (Auto) 2000 [place] # (Auto) 900 Eos # (Auto) 400 Baso # (Auto) 100 RBC Morphology See below Poikilocytosis 1+ H Anisocytosis 2+ H Ovalocytes 1+ H Sodium 137 Potassium 5.2 H Chloride 105 Carbon Dioxide 30 BUN 10 Creatinine 0.91 Estimated GFR 59.8 L BUN/Creatinine Ratio 11.0 Glucose 103 Calcium 8.9 PFSH Medical History (Updated 09/20/20 @ 12:12 by Apple Lee RN) Alcoholism Benign paroxysmal vertigo Easy bruisability Hyperlipidemia Hypertension Major depressive disorder in remission Meniere disease Surgical History (Updated 09/20/20 @ 12:09 by Apple Lee RN) History of ankle surgery History of hysterectomy Hx of bilateral cataract extraction Family History Father Heart attack Social History household members: none Smoking Status: Former smoker alcohol intake: former substance use type: does not use Assessment & Plan Post-op Postoperative Procedures: Procedures Operation Date: 09/22/20 13:15 Actual Procedure Side Surgeon p Colon Resection Low Anterior w/ Appendectomy Brayden Langford MD Postoperative status: doing well Postoperative plan: routine post-op care Postoperative plan narrative: Wait for flatus to advance diet today. IF no nausea, will advance tomorrow. continue current care. Time Spent With Patient Time with patient: 15-24 minutes
--- NOTE | 2020-09-24 14:26 | PC.NURSE ---
Pt reports mild to moderate pain with 10 mg Oxycodone; BTs to all quadrants hypoactive; Abd bulky drsg c/d/i; LS clear; pt ambulates to bathroom with sba and fww; up to chair today and napping in bed
--- NOTE | 2020-09-24 14:46 | PT.IPTN ---
Current Diagnoses Other specified diseases of intestine (09/22/20) Surgery Performed Operation Date: 09/22/20 13:15 Actual Procedures p Colon Resection Low Anterior w/ Appendectomy - Brayden Langford MD Physical Therapy Treatment Note M2 PT-IP Current Condition Start: 09/23/20 18:08 Freq: NEEDED Status: Active Protocol: Document 09/23/20 14:08 AB (Rec: 09/23/20 18:20 AB [id number]) Physical Therapy Current Condition Current Condition Evaluation Date 09/23/20 Treatment Diagnosis s/p R hemicolectomy; difficulty in walking Onset Date 09/22/20 Precautions Abdominal Surgery Precautions Log Roll,Lifting Restrictions, Gait Belt above Incisional Area M3 PT-IP Subjective Start: 09/23/20 18:08 Freq: NEEDED Status: Active Protocol: Document 09/24/20 14:46 AB (Rec: 09/24/20 16:59 AB [id number]) Subjective Physical Therapy Visit Type Type Treatment Note Visit Start Time 14:46 Visit Stop Time 15:00 Total Visit Minutes 14 Number of LINE HELPER Visits 0 Physical Therapy Visit Comments Patient Comments pt is agreeable to do PT M4 PT-IP Mobility and Gait Start: 09/23/20 18:08 Freq: NEEDED Status: Active Protocol: Document 09/24/20 14:46 AB (Rec: 09/24/20 16:59 AB [id number]) PT-Bed Mobility Assessment Rolling Type of Rolling Log Rolling Level of Assist Standby Assistance Supine to Sit Supine to Sit Standby Assistance,Head of Bed Elevated,Bedrails Sit to Supine Sit to Supine Standby Assistance,Head of Bed Elevated,Bedrails PT-Transfer Assessment Sit to and From Stand Sit to and from Stand Standby Assistance,Use of Upper Extremities Equipment Transfer Assistive Device Gait Belt,Front Wheeled Walker Orthotic/Prosthetic Devices or Brace: No Comments Mobility Comments completed supine to sit log roll SBA with use of bed rail and HOB elevated ~ 20 deg. pt completed sit to stand SBA and ambulated in the hallway ~ 150 ft using FWW SBA. presents with slow terrell and decrease stride length. pt requested to go back to bed. completed sit to supine SBA using bed rail and HOB elevated. positioned pt in bed. call light and table placed within reach. Gait Assessment Gait Gait Assistance Required: Standby Assistance,1 Person Assist Distance (Feet) 150 Able to Maintain Weight Bearing Status Yes During Gait Assistive Devices Assistive Device Gait Belt,Front Wheeled Walker Orthotic/Prosthetic Devices or Brace: Yes Gait Deviations General Gait Pattern Decreased Stride Length, Decreased Feet Clearance,Step- to Gait M5 PT-IP Objective Assessments Start: 09/23/20 18:08 Freq: NEEDED Status: Active Protocol: Document 09/23/20 14:08 AB (Rec: 09/23/20 18:20 AB [id number]) Orientation Orientation/Cognition Level of Alertness Alert Orientation Name,Place,Situation Language Function Ability Hard of Hearing Safety Awareness Decreased Safety Awareness Memory Description No Deficits Noted Gross Range of Motion Lower Extremity ROM Assessment Within Functional Limits Strength Lower Extremity Strength Hip 4-/5 Knee 4-/5 Coordination Assessment Gross Coordination Gross Coordination WNL Sensation Assessment Sensation Gross Sensation WNL Muscle Tone Muscle Tone WNL Yes M6 PT-IP Treatment Start: 09/23/20 18:08 Freq: NEEDED Status: Active Protocol: Document 09/24/20 14:46 AB (Rec: 09/24/20 16:59 AB [id number]) Physical Therapy Treatment Education Education Provided Precautions,Safety M7 PT-IP Assessment and Plan Start: 09/23/20 18:08 Freq: NEEDED Status: Active Protocol: Document 09/24/20 14:46 AB (Rec: 09/24/20 16:59 AB [id number]) PT Summary Assessment and Plan Potential Rehabilitation Potential Good Summary Impairments Pain,ROM,Strength,Balance, Coordination,Sensation,Tone, Cognition,Bed Mobility, Transfers,Gait,Activity Tolerance Progress Towards Goals Slow Progress due to Medical Issues,Slow Progress due to Activity Tolerance Assessment Summary pt improving with mobility and able to ambulate more today using FWW SBA ~ 150 ft. pt plans to go to her son's house upon d/c and son will be able to assist pt. will complete stair climbing training prior to d/c. Goals Bed Mobility Goal Independent Transfer Goal Independent,Front Wheeled Walker Gait Goal Independent,Front Wheel Walker Gait Distance 200 Other Goals improve ambulation withotu AD 150 ft SBA up/down 3 steps B rails SBA Days to Meet Goals 10 Frequency of Treatment Frequency Of Treatment Once a Day Treatment Plan Physical Therapy Treatment Plan Bed Mobility Training,Transfer Training,Gait Training, Therapeutic Exercise,Balance Retraining,Post Op Education, Discharge Planning,Hot or Cold Pack,Neuromuscular Re-ed, Coordination Retraining,Manual Therapy Precautions Abdominal Surgery Precautions Log Roll,Lifting Restrictions, Gait Belt above Incisional Area Recommendations To Nursing Amount of Assist Needed 1 Person Assist Discharge Recommendations PT Discharge Recommendations Home with Assistance Transportation Needs at Discharge Private Vehicle
[2020-09-25 02:00] VITALS: O2SAT 95
[2020-09-25 04:00] VITALS: BP 141/62; PULSE 75; RESP 18; TEMP 36.2; O2SAT 95
[2020-09-25 05:42] LABS: Basophils Absolute Auto 100 /uL (0-100); Basophils Percent Auto 0.9 % (0-2); Eosinophils Absolute Auto 600 /uL (0-450); Eosinophils Percent Auto 5.8 % (2-4); Hematocrit 27.9 % (36-46); Hemoglobin 8.8 g/dL (12.0-16.0); Lymphocytes Absolute Auto 2200 /uL (1100-4500); Lymphocytes Percent Auto 21.4 % (25-40); Mean Corpuscular HGB Conc 31.6 % (30-36); Mean Corpuscular Hemoglobin 23.5 PG (26-34); Mean Corpuscular Volume 74.3 fL (80-100); Monocytes Absolute Auto 900 /uL (0-900); Monocytes Percent Auto 8.6 % (3-14); Neutrophils Absolute Auto 6500 /uL (1500-7000); Neutrophils Percent Auto 63.3 % (50-75); Platelet Count 436 X10^3/uL (150-400); Red Blood Cell Count 3.75 X10^6/uL (4.0-5.2); Red Cell Distribution Width 28.5 % (11.6-14.8); White Blood Cell Count 10.3 X10^3/uL (4.5-11.0)
[2020-09-25 05:44] LABS: Add Manual Diff / Slide Review SLIDE REVIEW
[2020-09-25 05:49] LABS: BUN Creatinine Ratio 10.2 (6-22); Blood Urea Nitrogen 9 mg/dL (7-17); Calcium 8.5 mg/dL (8.4-10.2); Carbon Dioxide 28 mmol/L (22-32); Chloride 105 mmol/L (98-107); Estimated Glomerular Filt Rate > 60.0 mL/min (>60); Glucose 84 mg/dL (80-110); HEMOLYSIS < 15 (0-50); Potassium 4.3 mmol/L (3.4-5.1); Sodium 137 mmol/L (137-145)
[2020-09-25 06:00] VITALS: O2SAT 97
[2020-09-25] MEDS: OXYCODONE IR 5 MG TABLET 10 MG PO ×2 (06:31→14:47)
[2020-09-25 07:00] VITALS: BP 105/57; PULSE 66; RESP 18; TEMP 36.6; O2SAT 93
[2020-09-25 07:11] LABS: Anisocytosis 2+; Dimorphic RBC 2; Hypochromasia 1+; Microcytosis 1+
[2020-09-25 07:35] VITALS: O2SAT 94
[2020-09-25] MEDS: METOPROLOL IR 50 MG TABLET 100 MG PO (08:58)
[2020-09-25] MEDS: CITALOPRAM 10 MG TABLET 20 MG PO (08:58)
[2020-09-25] MEDS: ENOXAPARIN 40 MG/0.4 ML SYRINGE SUBCUT (08:59)
--- NOTE | 2020-09-25 11:15 | PT.IPTN ---
Current Diagnoses Other specified diseases of intestine (09/22/20) Surgery Performed Operation Date: 09/22/20 13:15 Actual Procedures p Colon Resection Low Anterior w/ Appendectomy - Brayden Langford MD Physical Therapy Treatment Note M2 PT-IP Current Condition Start: 09/23/20 18:08 Freq: NEEDED Status: Active Protocol: Document 09/23/20 14:08 AB (Rec: 09/23/20 18:20 AB [id number]) Physical Therapy Current Condition Current Condition Evaluation Date 09/23/20 Treatment Diagnosis s/p R hemicolectomy; difficulty in walking Onset Date 09/22/20 Precautions Abdominal Surgery Precautions Log Roll,Lifting Restrictions, Gait Belt above Incisional Area M3 PT-IP Subjective Start: 09/23/20 18:08 Freq: NEEDED Status: Active Protocol: Document 09/25/20 11:01 DCW (Rec: 09/25/20 11:25 DCW [id number]) Subjective Physical Therapy Visit Type Type Treatment Note Visit Start Time 11:01 Visit Stop Time 11:15 Total Visit Minutes 14 Number of STONE CUTTER Visits 0 Physical Therapy Visit Comments Patient Comments I'm feeling pretty good! Therapy Pain Assessment Pain When Pain Assessed During Mobility Pain Present Pain Present Denied Pain M4 PT-IP Mobility and Gait Start: 09/23/20 18:08 Freq: NEEDED Status: Active Protocol: Document 09/25/20 11:01 DCW (Rec: 09/25/20 11:25 DCW [id number]) PT-Transfer Assessment Sit to and From Stand Sit to and from Stand Standby Assistance,Use of Upper Extremities Equipment Transfer Assistive Device Gait Belt,Front Wheeled Walker Orthotic/Prosthetic Devices or Brace: No Comments Mobility Comments Pt seated in recliner upon therapist entering room Gait Assessment Gait Gait Assistance Required: Standby Assistance Distance (Feet) 500 Able to Maintain Weight Bearing Status Yes During Gait Assistive Devices Assistive Device Gait Belt,Front Wheeled Walker Orthotic/Prosthetic Devices or Brace: No Gait Deviations General Gait Pattern Decreased Stride Length,Flexed Trunk Factors Limiting Gait Function Factors Limiting Gait Function Decreased Activity Tolerance Stair Climbing Assessment Evaluation Level of Assist On Stairs Standby Assistance Devices Stair Climbing Assistive Devices Left Railing Technique/Endurance Stair Climbing Direction Ascend and Descend Stair Climbing Technique Step Over Step,Step to Step Number of Steps Climbed 3 Stair Climbing Set # Repetitions (reps) 1 Comments Stair Climbing Comments Step over step ascending Step to step descending M5 PT-IP Objective Assessments Start: 09/23/20 18:08 Freq: NEEDED Status: Active Protocol: Document 09/23/20 14:08 AB (Rec: 09/23/20 18:20 AB [id number]) Orientation Orientation/Cognition Level of Alertness Alert Orientation Name,Place,Situation Language Function Ability Hard of Hearing Safety Awareness Decreased Safety Awareness Memory Description No Deficits Noted Gross Range of Motion Lower Extremity ROM Assessment Within Functional Limits Strength Lower Extremity Strength Hip 4-/5 Knee 4-/5 Coordination Assessment Gross Coordination Gross Coordination WNL Sensation Assessment Sensation Gross Sensation WNL Muscle Tone Muscle Tone WNL Yes M6 PT-IP Treatment Start: 09/23/20 18:08 Freq: NEEDED Status: Active Protocol: Document 09/25/20 11:01 DCW (Rec: 09/25/20 11:25 DCW [id number]) Physical Therapy Treatment Education Education Provided Precautions,Safety M7 PT-IP Assessment and Plan Start: 09/23/20 18:08 Freq: NEEDED Status: Active Protocol: Document 09/25/20 11:01 DCW (Rec: 09/25/20 11:25 DCW [id number]) PT Summary Assessment and Plan Summary Impairments Strength,Balance,Transfers, Gait,Activity Tolerance Assessment Summary Pt significantly more mobile today vs yesterday. Ambulated 500' in [place] SBA using FWW, no signs of fatigue. Pt has slightly forward flexed trunk and a decreased terrell, although both of these improved as pt walked more and loosened up. Pt did well with her stairs, no safety concerns. There is currently questions whether pt is leaving today or tomorrow based on how she responds to eating solid food at lunch. From a PT standpoint, pt would be safe to discharge home today. Goals Bed Mobility Goal Independent Transfer Goal Independent,Front Wheeled Walker Gait Goal Independent,Front Wheel Walker Gait Distance 200 Other Goals improve ambulation withotu AD 150 ft SBA up/down 3 steps B rails SBA Days to Meet Goals 10 Frequency of Treatment Frequency Of Treatment Once a Day Treatment Plan Physical Therapy Treatment Plan Bed Mobility Training,Transfer Training,Gait Training, Therapeutic Exercise,Balance Retraining,Post Op Education, Discharge Planning,Hot or Cold Pack,Neuromuscular Re-ed, Coordination Retraining,Manual Therapy Precautions Abdominal Surgery Precautions Log Roll,Lifting Restrictions, Gait Belt above Incisional Area Recommendations To Nursing Amount of Assist Needed Standby Assistance,1 Person Assist Discharge Recommendations PT Discharge Recommendations Home with Assistance Transportation Needs at Discharge Private Vehicle
--- NOTE | 2020-09-25 15:50 | PC.NURSE ---
Discharge: Pt readied for d/c home. Son is picking pt up at hospital. Priority load pass given. removed ian drain and gave pt d/c instructions. Seen by PT and given their final instructions. 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 Discharge packet reviewed and understood. Questions answered. Pt d/c home via auto w/son.
--- NOTE | 2020-09-25 16:02 | P.DS_ITS ---
History of Present Illness History of Present Illness Date Patient Seen: 09/25/20 Time Patient Seen: 16:02 Chief complaint: INPT Narrative: 79-year-old female admitted 09/22/2020 for elective right hemicolectomy for a colonic mass. Initially referred to General surgery for iron deficiency anemia and a CT that demonstrated a right colon mass suspicious for adenocarcinoma. Yesterday she had a colonoscopy that demonstrated a large friable mass in the right colon consistent with colon cancer. Staging workup demonstrates no evidence of metastatic disease. Discharge Providers Provider Date of admission: 09/22/20 12:31 Discharge Date: 09/25/20 Primary care physician: Francis Garnica MD Consults: 09/23/20 09:03 Consult to Discharge Planning Routine Comment: Consult to Physical Therapy Evaluate & Treat Comment: Physician Instructions: Evaluate and Treat Discharge provider: Brayden Langford MD Summary Hospital Course Discharge Diagnosis: Status post right hemicolectomy Colonic mass Asthma Hypertension Hospital Course: Underwent laparoscopic converted to open right hemicolectomy 09/22/2020. No evidence of metastatic disease intraoperatively large mass consistent with cancer in the right colon. Postoperative course was unremarkable. At discharge 09/25 tolerant of a regular diet has return of bowel function pain is controlled with oral medication ambulatory. A drain within the subcutaneous space of the abdominal wall has been removed. She will follow up with General surgery 1 week time. Pathology is pending at this time. Exam Vital Signs (past 8 hours): Oxygen Delivery Method Room Air Oxygen Flow Rate 0 Narrative Exam Narrative: General elderly woman alert oriented no acute distress Abdomen midline incision clean dry intact with adriana. Drain serosanguineous output removed. Extremities warm well perfused Objective Labs Result Diagrams: 09/25/20 05:15 09/25/20 05:15 Labs: Laboratory Results - last 24 hr 09/25/20 09/25/20 05:15 05:15 WBC 10.3 RBC 3.75 L Hgb 8.8 L Hct 27.9 L MCV 74.3 L MCH 23.5 L MCHC 31.6 RDW 28.5 H Plt Count 436 H Neut % (Auto) 63.3 Lymph % (Auto) 21.4 L [place] % (Auto) 8.6 Eos % (Auto) 5.8 H Baso % (Auto) 0.9 Neut # (Auto) 6500 Lymph # (Auto) 2200 [place] # (Auto) 900 Eos # (Auto) 600 H Baso # (Auto) 100 RBC Morphology See below Dimorphic RBCs 2 Hypochromasia 1+ H Anisocytosis 2+ H Microcytosis 1+ H Sodium 137 Potassium 4.3 Chloride 105 Carbon Dioxide 28 BUN 9 Creatinine 0.88 Estimated GFR > 60.0 BUN/Creatinine Ratio 10.2 Glucose 84 Calcium 8.5 PFSH Medical History (Updated 09/20/20 @ 12:12 by Apple Lee RN) Alcoholism Benign paroxysmal vertigo Easy bruisability Hyperlipidemia Hypertension Major depressive disorder in remission Meniere disease Surgical History (Updated 09/20/20 @ 12:09 by Apple Lee RN) History of ankle surgery History of hysterectomy Hx of bilateral cataract extraction Family History Father Heart attack Social History household members: none Smoking Status: Former smoker alcohol intake: former substance use type: does not use Discharge Plan Discharge Plan Patient Disposition: Home Provider Discharge Comment: -Okay to shower -Do not submerge wounds in water until seen in follow-up. -No lifting >20 lbs x 4 weeks. -Walking only for exercise for 4 weeks. -No driving while taking narcotics. -schedule follow-up appointment with General surgery office for week of October 04 Discharge orders & Medications Prescriptions: New docusate sodium [Colace] 100 mg capsule 100 mg PO BID Qty: 30 RF: 0 oxycodone 5 mg tablet See Rx Instructions .ROUTE .COMPLEX PRN (Reason: pain) Qty: 30 RF: 0 acetaminophen [Tylenol] 325 mg capsule 650 mg PO QID PRN (Reason: pain) Qty: 60 RF: 0 Continued metoprolol tartrate 100 mg Tablet 100 mg PO BID RF: 0 clobetasol 0.05 % Cream 1 applic TOPICAL BID PRN (Reason: Facial rash) RF: 0 citalopram 20 mg Tablet 20 mg PO DAILY RF: 0 aspirin 81 mg Tablet 81 mg PO DAILY RF: 0 cholecalciferol (vitamin D3) [Vitamin D3] 25 mcg (1,000 unit) Capsule 25 mcg PO DAILY RF: 0 albuterol sulfate 90 mcg/actuation Hfa Aerosol Inhaler 2 puff INHALATION Q4-6H PRN (Reason: Occasional shortness of breath) RF: 0 Follow up/Referrals: Francis Garnica MD [Primary Care Provider] - Brayden Langford MD [Physician] - Diet/Activity/Treatments Diet: Regular Skin/Wound/Dressing Care Report to your healthcare provider any signs of infection, such as:: chills, fever, increased pain, unusual drainage and unusual redness Visit Report/Discharge Packet Instructions: DI for Colectomy, DI for Constipation, How to Prevent Falls, DI for Prescription Opioid Use Discharge Data Primary Care Provider: Francis Garnica
== END 2020-09-25 15:35 | disposition home or self-care (01) | DRG 331 ==
PROVIDERS: Admitting Provider Surgery; PCP Family Medicine; Referring Provider Surgery; Visit Provider Surgery
PROC: 0DTF0ZZ Resection of Right Large Intestine, Open Approach (ICD-10-PCS; CPT 44140; principal; 2020-09-22 13:15)
DX: C18.0 Malignant neoplasm of cecum (principal); D50.9 Iron deficiency anemia, unspecified; I10 Essential (primary) hypertension; F32.9 Major depressive disorder, single episode, unspecified; Z87.891 Personal history of nicotine dependence; Z20.822 Contact with and (suspected) exposure to COVID-19; J45.909 Unspecified asthma, uncomplicated; J44.9 Chronic obstructive pulmonary disease, unspecified
CPT/HCPCS: 36415; 36430; 36592; 44160; 71045; 80048; 81001; 82962; 85025; 86850; 86900; 86901; 87635; 94760; 97116; 97162; P9016; J0360; J1100; J1170; J1650; J2250; J2405; J2543; J2704; J3010

== ENCOUNTER 2020-10-04 09:52 | Day surgery (SDC) | payer MEDICARE, SELFPAY ==
[2020-09-30 10:52] VITALS: BMI 30.6
[2020-10-04 10:24] LABS: COVID19 -Nasal RAPID Negative (Negative)
[2020-10-04 10:42] VITALS: BMI 30.6
[2020-10-04 11:14] VITALS: BP 168/72; PULSE 60; RESP 16; TEMP 36.6; O2SAT 100
[2020-10-04] MEDS: LACTATED RINGERS 1,000 ML 42 ML IV (11:17)
[2020-10-04 11:20] VITALS: BMI 30.6
--- NOTE | 2020-10-04 11:56 | P.HP_ITS ---
History of Present Illness History of Present Illness Date Patient Seen: 10/04/20 Time Patient Seen: 11:56 Chief complaint: SDC Narrative: 79-year-old female status post right hemicolectomy 2 weeks ago for a colon cancer here for an elective Port-A-Cath placement. Case was reviewed in tumor board recommendation was for chemotherapy it was also noted that there was some fullness in the gastric region on her staging CT with recommendation for EGD. Patient History Medical History Alcoholism Benign paroxysmal vertigo Easy bruisability Hyperlipidemia Hypertension Major depressive disorder in remission Meniere disease Surgical History History of ankle surgery History of hysterectomy Hx of bilateral cataract extraction Hx of right hemicolectomy (09/22/20) Family & Social History Family History Father Heart attack Social History: household members none Prior Living Arrangements House Tobacco & Substance use: Tobacco type cigarettes Smoking Status Former smoker alcohol intake former Substance Use Type does not use Meds Home Medications and Allergies Home Medications Medication Instructions Recorded Confirmed Type aspirin 81 mg tablet 81 mg PO DAILY 08/30/20 10/04/20 History cholecalciferol (vitamin D3) 25 25 mcg PO DAILY 08/30/20 09/30/20 History mcg (1,000 unit) capsule (Vitamin D3) citalopram 20 mg tablet 20 mg PO DAILY 08/30/20 10/04/20 History clobetasol 0.05 % topical cream 1 applic TOPICAL BID PRN 08/30/20 09/30/20 History metoprolol tartrate 100 mg tablet 100 mg PO BID 08/30/20 10/04/20 History albuterol sulfate 90 mcg/actuation 2 puff INHALATION Q4-6H PRN 09/20/20 09/30/20 History aerosol inhaler acetaminophen 325 mg capsule 650 mg PO QID PRN #60 cap 09/25/20 10/04/20 Rx (Tylenol) docusate sodium 100 mg capsule 100 mg PO BID #30 cap 09/25/20 09/30/20 Rx (Colace) oxycodone 5 mg tablet See Rx Instructions .ROUTE 09/25/20 10/04/20 Rx .COMPLEX PRN #30 tab Allergies Allergy/AdvReac Type Severity Reaction Status Date / Time iodine Allergy Intermediate Hand Verified 10/04/20 10:37 swelling shellfish derived Allergy Intermediate Hand Verified 10/04/20 10:37 swelling lisinopril AdvReac Unknown Pt does Verified 10/04/20 10:37 not recall sertraline [From Zoloft] AdvReac Unknown Pt does Verified 10/04/20 10:37 not recall Exam Vital Signs (past 8 hours): - 10/04/20 11:14 Temperature 97.8 F Pulse Rate 60 Respiratory Rate 16 Blood Pressure 168/72 H Pulse Oximetry 100 Oxygen Delivery Method Room Air Narrative Exam Narrative: Constitutional-She is oriented to person, place and time. No apparent distress Cardiovascular- regular rate, no peripheral edema Pulmonary-unlabored respiratory effort, no audible wheezing Abdominal-soft, non-tender, non-distended Musculoskeletal-no cyanosis or clubbing Neurological-nonfocal, normal strength throughout, normal gait. Skin-warm and dry Objective Labs Labs: Laboratory Results - last 24 hr 10/04/20 10:04 SARS-CoV-2 (PCR) Negative Assessment & Plan Assessment & Plan narrative: 79-year-old female with stage II colon cancer with high risk features here for a Port-A-Cath placement and diagnostic EGD. Techni raymond details of the procedure were discussed the patient. Risks including bleeding, infection, embolus, intestinal perforation, damage to surrounding structures were discussed. Questions have been answered and she is in agreement with this plan.
[2020-10-04] MEDS: CEFAZOLIN 1 GM VIAL 2 GM IV (12:12)
[2020-10-04] MEDS: BUPIVACAINE 0.25% (PF) VIAL 10 ML INJ (12:34)
[2020-10-04] MEDS: BUPIVACAINE 0.5% (PF) VIAL 30 ML INJ (12:35)
[2020-10-04] MEDS: HEPARIN 5,000 UNIT, SODIUM CHLORIDE 0.9% 50 ML IV (12:35)
[2020-10-04] MEDS: NEOMYCIN/POLYMYXIN/BACITRA UD OINT 1 EACH TOP (12:58)
--- NOTE | 2020-10-04 13:00 | DI.RAD.S_ITS ---
PROCEDURE: XR CHEST 1V INDICATIONS: RIGHT PORT A CATH POST OP TECHNIQUE: One view of the chest was acquired. COMPARISON: [facility], CR, XR CHEST 1V, 09/21/2020, 10:56. FINDINGS: Surgical changes and devices: Interval placement of a right chest Port-A-Cath with a somewhat high course within the neck and catheter tip projecting over the superior vena cava. Lungs and pleura: Lungs are clear. No pleural effusions or pneumothorax. Mediastinum: Mediastinal contours appear normal. Heart size is normal. Bones and chest wall: No suspicious bony lesions. Overlying soft tissues appear unremarkable. IMPRESSION: Interval placement of right chest Port-A-Cath with catheter tip projecting over the superior vena cava. Dictated by: Barrie Jay M.D. on 10/04/2020 at 13:53 Approved by: Barrie Jay M.D. on 10/04/2020 at 13:58
[2020-10-04 13:08] VITALS: BP 145/67; PULSE 57; RESP 12; TEMP 36.4; O2SAT 100
[2020-10-04 13:13] VITALS: BP 149/61; PULSE 56; RESP 16; O2SAT 100
[2020-10-04 13:17] VITALS: BP 164/73; PULSE 55; RESP 16; O2SAT 96
[2020-10-04 13:23] VITALS: BP 161/69; PULSE 54; RESP 16; TEMP 36.4; O2SAT 99
--- NOTE | 2020-10-04 13:35 | SUR.PHASEII ---
Assumed care from [facility]ette, brought pt to phase 2. Dr Langford called to read xray, stated xray ok, pt given something to drink.
[2020-10-04 14:12] VITALS: BP 175/65; PULSE 53; RESP 18; TEMP 36.6; O2SAT 99
--- NOTE | 2020-10-04 14:16 | SUR.PHASEII ---
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 Pt dressing site to l neck and l chest c/d/i. Awaiting call from [facility] in law.
--- NOTE | 2020-10-04 14:39 | SUR.PHASEII ---
Pt left when ready and left in stable condition. D/C instructions discussed with both pt and daughter when brought to car. Both voiced an understanding.
--- NOTE | 2020-10-04 17:25 | PM.OP.1 ---
Operative Date/Time/Diagnoses Date of procedure: 10/04/20 Time of procedure: 17:25 Pre-op diagnosis: Colon cancer Post-op diagnosis: same Procedure & Clinicians Procedure: Port-A-Cath placement, esophagoduodenoscopy Same procedure as scheduled: Yes Indications: Stage II colon cancer with high risk features requiring chemotherapy, evaluation of gastric fullness noted on staging CT abdomen pelvis Surgeon: Brayden Langford Click Yes if Unassisted: Yes Anesthesia Type: MAC +/- Operative Notes Findings: Tip of the catheter lies within the SVC. No significant gastric abnormality Specimen(s): none sent Estimated Blood Loss (mL): 20 Procedure in detail: Patient was brought to the operating room placed supine on table. Bilateral lower extremity compressive devices were applied. General anesthesia was induced and he was intubated with an LMA. She was then prepped and draped in usual sterile fashion. Time-out was performed ensure the correct patient procedure necessary equipment within the operating room. She received 2 g of Ancef prior to incision. Under ultrasound guidance the right internal jugular vein was accessed under direct visualization. The guidewire was then threaded through the needle. Its placement was then confirmed using fluoroscopy. The dilator was then placed over the guidewire. The catheter was then inserted through the sheath. Placement was again confirmed with fluoroscopy. A subcutaneous pocket was made in the right chest wall. The tunneler device was used to move the catheter from the neck to the chest pocket. The port was attached after it was primed with heparined saline. The port was tested to ensure that it flushed easily and had good blood return. The port was then secured to the underlying fascia using interupted 0 Prolene suture. Hemostasis was achieved. The wound was irrigated with sterile saline. The subcutaneous tissues were reapproximated with the 3 0 Vicryl and then skin closed with 4-0 Monocryl. The skin was sealed with Dermabond. Patient tolerated procedure well. The sponge and instrument count at the end operation was correct. A bite block was placed. the scope was inserted into the mouth and advanced through the esophagus and into the stomach. The pylorus was intubated and the duodenum was normal to the 2nd portion. The scope was retroflexed within the stomach and there was a small hiatal hernia. No ulcers, or gastritis. The scope was withdrawn into the esophagus the Z line was seen at 40 cm from the incisions. There was no Platt's esophagitis or masses or strictures. Stomach was desufflated and scope removed. Patient tolerated procedure well. Patient emerged from general anesthesia was extubated and taken to the postoperative care unit in stable condition Complications: none Post-operative Condition: stable Disposition: same day surgery
== END 2020-10-04 14:23 | disposition home or self-care (01) ==
PROVIDERS: PCP Family Medicine; Referring Provider Surgery; Visit Provider Surgery
PROC: (CPT 36561; principal; 2020-10-04 11:30)
PROC: 0DJ08ZZ Inspection of Upper Intestinal Tract, Via Natural or Artificial Opening Endoscopic (ICD-10-PCS; CPT 43235; 2020-10-04 11:30)
DX: C18.9 Malignant neoplasm of colon, unspecified (principal); R93.5 Abnormal findings on diagnostic imaging of other abdominal regions, including retroperitoneum; E78.5 Hyperlipidemia, unspecified; I10 Essential (primary) hypertension; Z20.822 Contact with and (suspected) exposure to COVID-19; J44.9 Chronic obstructive pulmonary disease, unspecified; K44.9 Diaphragmatic hernia without obstruction or gangrene
CPT/HCPCS: 36561; 43235; 71045; 76000; 87635; C1788; J0690; J1644; J2250; J2704; J3010